=== PATIENT | male | born 1965 | race Asian ===

== ENCOUNTER 2024-12-28 06:59 | Day surgery (SDC) | payer OTHER ==
[2024-12-26 10:37] LABS: Absolute Basophils 0.1 K/uL (0-0.5); Absolute Eosinophils 0.5 K/uL (0-0.5); Absolute Lymphocytes (CBC) 2.7 K/uL (0.7-4.9); Absolute Monocytes 0.6 K/uL (0.1-1.3); Absolute Neutrophil 6.2 K/uL (1.8-8.0); Basophils % 0.7 % (0-1.3); Eosinophils % 4.8 % (0-4.4); Hematocrit 42.1 % (39.6-49.0); Hemoglobin 14.5 g/dL (13.6-17.9); MCH 29.1 pg (27.0-35.0); MCHC 34.5 g/dL (32.0-36.0); MCV 84.5 fL (80-100); MPV 8.3 fL (7.6-11.3); Monocytes % 6.3 % (3.3-12.3); Neutrophils % 61.2 % (41.7-73.7); Nucleated Red Blood Cells % 0.1 % (0-0); Platelets 199 thou/uL (152-406); RBC Red Blood Cell Count 4.98 M/uL (4.33-5.43); Red Cell Distribution Width 14.5 % (12.1-15.2)
[2024-12-26 10:48] LABS: Anion Gap 8.8 mEq/L (5.0-15.0); Potassium 3.8 mEq/L (3.5-5.1)
--- NOTE | 2024-12-26 12:32 | EKG ---
Test Date: 2024-12-26 Test Time: 10:15:15 [employer] Control Analyst: DERICK MEASUREMENT RESULTS: Intervals: Rate: 67 PA: 170 QRSD: 104 QT: 416 QTc: 439 [place]: P: 71 PA: 170 QRS: 57 T: 69 INTERPRETIVE STATEMENTS: Normal sinus rhythm Normal ECG No previous ECG available for comparison Electronically Signed On 12-26-24 12:31:51 CDT by Chema Madrigal
[2024-12-28] MEDS ORDERED: NA CHLORIDE 0.9% 1,000 ML ONE (07:13)
[2024-12-28] MEDS ORDERED: propofoL 200 MG/20 ML VIAL IV ONE (07:36)
[2024-12-28 09:18] VITALS: O2SAT 96
[2024-12-28 09:20] VITALS: BP 105/65; TEMP 97.7
== END 2024-12-28 09:00 | disposition home or self-care (01) ==
LOC: OR 06:59
PROVIDERS: ATTEND Surgery
PROC: 0DBN8ZX Excision of Sigmoid Colon, Via Natural or Artificial Opening Endoscopic, Diagnostic (ICD-10-PCS; principal; 2024-12-28 08:00)
DX: Z12.11 Encounter for screening for malignant neoplasm of colon (principal); K52.9 Noninfective gastroenteritis and colitis, unspecified; K64.8 Other hemorrhoids
CPT/HCPCS: 45380; 93005; 85025; 80048; 36415; 82947; 88305; J2704; J7030